=== PATIENT | female | born 1935 ===

== ENCOUNTER 2016-10-22 08:53 | Day surgery (SDC) | payer MEDICARE, OTHER ==
[~2016-10-22] VITALS: Ht 157.5 cm; Wt 58.2 kg
[2016-10-22] VITALS (11 sets, daily range): BP systolic 123–163; BP diastolic 51–72; PULSE 53–68
[~2016-10-22 08:53] MED LIST: BENICAR HCT 251 TAB PO; CALTRATE 600600 MG PO; CARDI-OMEGA1000 MG PO; COUMADIN 1MG1 MG/TAB PO; LOPRESSOR100 MG PO; MUCINEX 60600 MG/TA1 PO; NORCO 325 MG-7.1 TAB PO; PRILOSEC 20MG20 MG PO; SINGULAIR 110 MG/TAB PO; VITAMIN B-12100 MCG PO; ZOCOR 20MG20 MG PO
[2016-10-22] MEDS ORDERED: B-12 500 MCG (09:17)
[2016-10-22] MEDS ORDERED: NORVASC 5MG5 MG/TAB PO (09:25)
[2016-10-22] MEDS ORDERED: NASACORT OTC NS (09:27)
[2016-10-22] MEDS ORDERED: VITAMIN C500 MG PO (09:27)
[2016-10-22] MEDS ORDERED: TYLENOL 325MG325 MG PO (09:28)
[2016-10-22] MEDS ORDERED: CALTRATE-600 W600 MG (09:48)
[2016-10-22 09:56] LABS: HEMATOCRIT 36.4 % (37.0-47.0); HEMOGLOBIN 12.4 g/dl (12.5-16.0); MEAN CELL VOLUME 94 fl (80.0-100.0); MEAN CORPUSCULAR HEMOGLOBIN 32 pg (27.0-31.0); MEAN CORPUSCULAR HGB CONC 34 g/dl (33.0-37.0); MEAN PLATELET VOLUME 10.6 fl (7.4-10.4); PLATELET COUNT 166 K/mm3 (130-400); RED BLOOD COUNT 3.88 M/mm3 (4.10-5.30); REDCELL DISTRIBUTION WIDTH-CV 13.2 % (11.5-14.5); WHITE BLOOD COUNT 5.9 K/mm3 (4.8-10.8)
[2016-10-22 10:06] LABS: INR 1.4 (0.8-3.0); PROTHROMBIN TIME 15.3 SECONDS (9.7-12.8)
[2016-10-22 10:15] LABS: CREATININE, serum 0.64 mg/dL (0.52-1.25); POTASSIUM 3.6 mmol/L (3.4-5.0)
[2016-10-22] MEDS ORDERED: ASPIRIN E.C. 8181 MG PO (13:40)
== END 2016-10-22 14:50 | disposition home or self-care (01) ==
LOC: COL.RAD 08:53
PROVIDERS: Internal Medicine Cardiovascular Disease
DX: I25.10 Atherosclerotic heart disease of native coronary artery without angina pectoris (principal); R07.89 Other chest pain; I48.2 Chronic atrial fibrillation; Z79.01 Long term (current) use of anticoagulants; E78.2 Mixed hyperlipidemia; I10 Essential (primary) hypertension
CPT/HCPCS: C1760; J2250; J3010